=== PATIENT | female | born 1960 | race Caucasian/White ===

== ENCOUNTER 2017-10-21 07:45 | Day surgery (SDC) | payer SELFPAY ==
[~2017-10-21 07:45] MED LIST: Buffered Lidocaine 0.9% SYRIN* 5 ML/SYR SYRINGE INTRADERM ONE
[2017-10-21] MEDS ORDERED: Dexamethasone IV* 4 MG/ML 1 ML (4 MG) ONE (07:59)
[2017-10-21] MEDS ORDERED: ceFAZolin 2 GM PREMIX (*) 2 GM/50 ML BAG IVPB ONE (07:59)
[2017-10-21] MEDS ORDERED: Midazolam* 1 MG/ML 2 ML VIAL (2 MG) ONE (09:06)
[2017-10-21] MEDS ORDERED: fentaNYL* 50 MCG/ML 2 ML VIAL (100 MCG VIAL) ONE (09:06)
[2017-10-21] MEDS ORDERED: Lidocaine 1% MPF wEPI 200,000* 30 ML SDV ONE ×2 (09:19→09:55)
[2017-10-21] MEDS ORDERED: Propofol* 10 MG/ML 20 ML BTL IV PUSH ONE (09:40)
[2017-10-21] MEDS ORDERED: Ondansetron INJ* 2 MG/ML VIAL ONE (09:40)
[2017-10-21] MEDS ORDERED: Naloxone* 0.4 MG/ML 1 ML VIAL IV PRN (09:59)
[2017-10-21 10:52] VITALS: BP 111/78
--- NOTE | 2017-10-23 08:51 | OP ---
CC: Elian Momin MD * DATE OF OPERATION: 10/21/17 - [facility] DATE OF : 56 SURGEON: Rick Sanchez MD, DMD BOWLING BALL ASSEMBLER: Elian Momin MD ANESTHESIOLOGIST: Luna Salgado MD PRE-OP DIAGNOSIS: Desire for improvement of neck contour. POST-OP DIAGNOSIS: Desire for improvement of neck contour. OPERATIVE PROCEDURE: INDICATIONS: The patient is a 57-year-old female who is interested in having submental liposuction for neck contouring. I discussed with her the full range of treatment options, alternatives, advantages, and disadvantages of each, and potential risks and complications in detail. She indicates she understands and wishes to proceed. DESCRIPTION OF PROCEDURE: The patient was brought to the operating room suite and placed in the standard supine position and prepped and draped in the standard fashion for facial cosmetic surgical procedure. [place] protocol time-out procedure was completed. Surgical skin marking pen was used to delineate the areas for submental liposuction. Local anesthesia was administered using 1% lidocaine with 1:200,000 epinephrine at the small submental incision site and subcutaneous infiltration using a total of 8 cc. Then, a small stab incision was made with a 15 blade in the submental crease and the tumescent anesthesia delivery cannulas were used to administer tumescent anesthesia, which was one-tenth of 1% lidocaine with 1:200,000 epinephrine. A total of 60 cc was injected in a wagon wheel fashion in the supra-platysmal plane. After allowing several minutes to pass for local anesthesia and hemostasis, 3-mm liposuction cannula was worked in a wagon wheel fashion in the supraplatysmal plane in the submental fat pocket using pinch technique to assure us symmetry of extraction. A total of approximately 20 cc of fat was suctioned free. Favorable contour was achieved. Closure was accomplished in an interrupted fashion with 6-0 nylon suture. Mastisol and Steri-Strips were placed and then a fluff dressing and soft adhesive Keshav-type bandage was used for light pressure dressing. The patient was alert, awake, and comfortable with full function of all branches of cranial nerve 7 bilaterally noted to be intact. The patient was transported to postanesthesia care unit alert, awake, and stable. All sponge and sharps counts were completed at the end of the procedure before leaving the operating room. Estimated blood loss was negligible and was certainly less than 10 cc. [id number]/[facility] #: [id number] [facility]OSPITALRenée
== END 2017-10-21 11:00 | disposition home or self-care (01) ==
LOC: OREAST 07:45
PROVIDERS: ATTEND Oral & Maxillofacial Surgery
DX: Z01.818 Encounter for other preprocedural examination (principal); Z41.1 Encounter for cosmetic surgery; Z88.5 Allergy status to narcotic agent; Z88.8 Allergy status to other drugs, medicaments and biological substances; Z90.710 Acquired absence of both cervix and uterus
CPT/HCPCS: J0690; J1100; J2001; J2250; J2405; J2704; J3010

== ENCOUNTER 2019-12-04 09:46 | Emergency (ER) | payer MEDICARE, OTHER ==
--- NOTE | 2019-12-04 10:04 | ED ---
Adult Trauma - HPI Summary HPI Summary: Patient is a 59 y/o F presenting to the ED for a chief complaint of left-sided rib pain that occurred after a fall on 12/03/19. Patient states she tripped on a chair and fell forward, landing on her hands and knees. Since the fall, she has had left-sided rib pain. Patient denies ecchymosis or shortness of breath. Patient has taken Tylenol for her pain with some relief. No aggravating factors are reported. She reports she has 3 "floating ribs" sustained years ago after being hit by sports equipment at [place]. Patient denies taking blood thinners. - History of Current Complaint Chief Complaint: EDFall Stated Complaint: L SIDE INJ FROM FALL PER PT Time Seen by Provider: 12/04/19 09:55 Hx Obtained From: Patient Mechanism of Injury: Fall Ambulatory at the Scene: No Onset/Duration: Traumatic - Fall, Still Present Onset of Pain: Immediate Onset Severity: Severe Current Severity: Severe Pain Intensity: 7 Pain Scale Used: 0-10 Numeric Location: Chest - Left-sided rib Aggravating Factor(s): Nothing Alleviating Factor(s): OTC Meds - Tylenol Associated Signs & Symptoms: Positive: Chest Pain - Left-sided rib. Negative: SOB, Ecchymosis - Allergy/Home Medications Allergies/Adverse Reactions: Allergies Allergy/AdvReac Type Severity Reaction Status Date / Time codeine Allergy Severe Nausea Verified 12/04/19 10:31 ibuprofen Allergy Hives Verified 12/04/19 09:51 Home Medications: Home Medications [place]-3 Fatty Acids/Fish Oil [Fish Oil 1,000 mg Softgel] 1 cap PO DAILY [History Confirmed 12/04/19] Azithromyxin BOBBY (NF) [Z-Bobby (Zithromax) 250 mg tabs #6] 2 tab PO .TODAY, THEN 1 DAILY #6 tab 12/04/19 [Rx] Cyclobenzaprine TAB* [Flexeril 10 MG TAB*] 10 mg PO TID PRN 4 Days #12 tab 12/04 [Rx] Jen 500 mg PO DAILY 12/04/19 [History Confirmed 12/04/19] Turmeric 400 mg PO DAILY 12/04/19 [History Confirmed 12/04/19] PMH/Surg Hx/FS Hx/Imm Hx Previously Healthy: Yes Endocrine/Hematology History: Denies: Hx Diabetes Respiratory History: Reports: Hx Asthma - ALLERGIC ASTHMA, Other Respiratory Problems/Disorders - HX OF LEFT LUNG COLAPSE AFTER ACCIDENT 6 YEARS AGO Musculoskeletal History: Reports: 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, Hx of Fracture(s) - 3 ribs Denies: Hx Osteoporosis Sensory History: Reports: Hx Contacts or Glasses - READING GLASSES Denies: Hx Legally Blind, Hx Deafness, Hx Hearing Aid Opthamlomology History: Reports: Hx Contacts or Glasses - READING GLASSES Denies: Hx Legally Blind EENT History: Denies: Hx Deafness Neurological History: Reports: Hx Nerve Disease - 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 6 YEARS AGO- 3 PLATES IN FACE, REMOVE BONE FRAGMENTS FROM FRACTURED RIBS. foot surgeries Hx Anesthesia Reactions: No Infectious Disease History: No Infectious Disease History: Denies: History Other Infectious Disease, Traveled Outside the [place] in Last 30 Days - Family History Known Family History: Negative: Cardiac Disease, Hypertension, Diabetes - Social History Occupation: Retired Lives: With Family Alcohol Use: Occasionally Alcohol Amount: 1 DAILY Hx Substance Use: No Substance Use Type: Reports: None Hx Tobacco Use: No Smoking Status (MU): Never Smoked Tobacco Review of Systems Positive: Chest Pain - Left-sided rib pain Positive: Shortness Of Breath Negative: Bruising All Other Systems Reviewed And Are Negative: Yes Physical Exam - Summary Physical Exam Summary: Constitutional: Well-developed, Well-nourished, Alert. (-) Distressed Skin: Warm, Dry HENT: Normocephalic; Atraumatic Eyes: Conjunctiva normal Neck: Musculoskeletal ROM normal neck. (-) JVD, (-) Stridor, (-) Nuchal rigidity. No cspine TTP. Cardio: Rhythm regular, rate normal, Heart sounds normal; Intact distal pulses; Radial pulses are 2+ and symmetric. (-) Murmur Pulmonary/Chest wall: Effort normal. (-) Respiratory distress, (-) Wheezes, (-) Rales Abd: Soft, (-) tenderness, (-) Distension, (-) Guarding, (-) Rebound Musculoskeletal: (-) Edema. Left chest wall tenderness. No R sided chest wall tenderness. No upper extremity tenderness. Neuro: Alert, Oriented x3 Psych: Mood and affect Normal Triage Information Reviewed: Yes Vital Signs On Initial Exam: Initial Vitals Temp Pulse Resp BP Pulse Ox 96.9 F 77 19 144/76 94 12/04/19 09:48 12/04/19 09:48 12/04/19 09:48 12/04/19 09:48 12/04/19 09:48 Vital Signs Reviewed: Yes Procedures - Sedation Patient Received Moderate/Deep Sedation with Procedure: No Diagnostics - Vital Signs Vital Signs Temp Pulse Resp BP Pulse Ox 12/04/19 09:48 96.9 F 77 19 144/76 94 - Laboratory Lab Statement: Any lab studies that have been ordered have been reviewed, and results considered in the medical decision making process. - CT Chest CT CT Interpretation Completed By: Radiologist Summary of CT Findings: Chest CT IMPRESSION: #. LEFT greater than RIGHT basilar airspace consolidation with air bronchograms concerning for pneumonia possibly aspiration pneumonia. Small LEFT and trace RIGHT pleural effusions. Negative for pneumothorax. #. Multiple healed LEFT rib fractures. No acute rib or other thoracic fracture evident. Reviewed by Dr. Villanueva. Re-Evaluation - Re-Evaluation First Eval Re-Evaluation Time: 12:35 Change: Unchanged Comment: At 12:35, patient was ambulating with an oxygen saturation of 94 %. She was given IS. She is ready to go home. Adult Trauma Course/Dx - Course Course Of Treatment: 59 y/o F w hx L sided rib fractures p/w L sided rib pain after a fall. - 92% on RA, pain w abrasion. CT scan shows no new rib fractures , but does show pneumonia and trace pleural effusions. Discussed with patient concern that she could have some early pneumonia given that she is splinting and has for pain equal without fractures. Will discharge with pain control including Flexeril, Tylenol and lidocaine patches. We'll also give her incidents primary. We'll treat for pneumonia with Zithromax, do not suspect aspiration pneumonia this patient has no aspiration risk factors. Patient to follow-up with her primary care doctor, return for worsening symptoms including fevers, worsening trouble breathing. Patient was ambulated in the ER before discharge had an ambulatory O2 sat of 94% - Diagnoses Provider Diagnoses: Rib contusion, Pneumonia Discharge ED - Sign-Out/Discharge Documenting (check all that apply): Patient Departure - Discharge - Discharge Plan Condition: Stable Disposition: HOME Prescriptions: Azithromyxin BOBBY (NF) [Z-Bobby (Zithromax) 250 mg tabs #6] 2 tab PO .TODAY, THEN 1 DAILY #6 tab Cyclobenzaprine TAB* [Flexeril 10 MG TAB*] 10 mg PO TID PRN 4 Days #12 tab PRN Reason: Pain - Moderate Patient Education Materials: Pneumonia (ED), Rib Contusion (ED) Referrals: Marky Estevez MD [Primary Care Provider] - Additional Instructions: You were seen in the emergency department for rib pain. Your CT scan showed pneumonia but no broken bones. Please take tylenol for pain, you can use over- the-counter lidocaine patches, and Flexeril at night for muscle pain. Please take azithromycin for 5 days. Please follow up with your primary care doctor in next 2-3 days and return to emergency department for worsening in, trouble breathing, fevers, or concerning symptoms. It was a pleasure taking care of you today. - Billing Disposition and Condition Condition: STABLE Disposition: Home - Attestation Statements Document Initiated by Kaylieibe: Yes Documenting Scribe: Claudia Garza Provider For Whom Keena is Documenting (Include Credential): Wyatt Villanueva MD Scribe Attestation: IClaudia, scribed for Wyatt Villanueva MD on 12/04/19 at 1321. Scribe Documentation Reviewed: Yes Provider Attestation: The documentation as recorded by the Claudia howard accurately reflects the service I personally performed and the decisions made by me, Wyatt Villanueva MD Status of Scribe Document: Viewed
[2019-12-04] MEDS ORDERED: Acetaminophen TAB* 325 MG PO ONE (10:26)
[2019-12-04 13:31] VITALS: BP 126/75
[2019-12-04] MEDS ORDERED: Lidocaine Patch REMOVE* 1 NOTE MISC SCH ×2 (21:00)
[2019-12-05] MEDS ORDERED: Lidocaine PATCH 5%* 1 PATCH TRANSDERM SCH (09:00)
== END 2019-12-04 13:29 | disposition home or self-care (01) ==
LOC: ED 09:46
DX: S20.212A Contusion of left front wall of thorax, initial encounter (principal); W18.09XA Striking against other object with subsequent fall, initial encounter; Y92.9 Unspecified place or not applicable; J18.9 Pneumonia, unspecified organism; Z88.6 Allergy status to analgesic agent; Z88.5 Allergy status to narcotic agent
CPT/HCPCS: 71250; 99283; A9270-GY